=== PATIENT | male | born 1950 | race Caucasian/White ===

== ENCOUNTER 2024-11-11 20:00 | Inpatient (IN) | payer MEDICARE ==
[2024-11-11 21:10] VITALS: BMI 27.0
[2024-11-11] MEDS ORDERED: Senokot S 8.6-50 MG TAB PO PRN (21:46)
[2024-11-11 22:20] LABS: #Basophils 0.03 10x3/uL (0.0-0.2); #Eosinophils Less than 0.03 10x3/uL (0.0-0.7); #Monocytes 1.58 10x3/uL (0.11-0.59); #Neutrophils 9.14 10x3/uL (1.40-6.50); %Basophils 0.2 % (0.0-1.0); %Eosinophils 0.1 % (0.0-10.0); %Lymphocytes 12.7 % (21.0-51.0); %Monocytes 12.7 % (0.0-10.0); %Neutrophils 73.7 % (42.0-75.0); Hematocrit 38.8 % (42.0-52.0); Hemoglobin 12.8 g/dL (14.0-18.0); Mean Corpuscular Hemoglobin 29.0 pg (27.0-31.0); Mean Corpuscular Volume 88.0 fL (78.0-98.0); Platelet Count 158 10x3/uL (130-400); Red Blood Cell (RBC) Count 4.41 mill/uL (4.70-6.10); White Blood Cell (WBC) Count 12.40 10x3/uL (4.8-10.8)
[2024-11-11 22:38] LABS: ALT (SGPT) 33 U/L (Less than 45); AST (SGOT) 27 U/L (11-34); Albumin 3.0 g/dL (3.1-4.5); Alkaline Phosphatase 126 U/L (40-110); Anion Gap 9 mmol/L (10-20); BUN (Urea Nitrogen) 33 mg/dL (8.4-25.7); Bilirubin, Total 0.7 mg/dL (0.3-1.2); Calc. Creatinine Clearance 44 mL/min (70-130); Calcium 8.4 mg/dL (7.8-10.44); Carbon Dioxide 24 mmol/L (23-31); Chloride 103 mmol/L (98-107); Globulin 4.0 g/dL (2.4-3.5); Glucose 109 mg/dL (83-110); Potassium 3.4 mmol/L (3.5-5.1); Sodium 133 mmol/L (136-145)
[2024-11-12] MEDS: Acetaminophen 325 MG TAB PO SCH (01:25)
[2024-11-12 03:09] LABS: Urea Nitrogen, Random Urine 773.0 mg/dl
[2024-11-12] MEDS: Clindamycin 150 MG CAP PO SCH (05:24)
[2024-11-12 05:39] LABS: #Basophils 0.03 10x3/uL (0.0-0.2); #Eosinophils 0.03 10x3/uL (0.0-0.7); #Monocytes 1.49 10x3/uL (0.11-0.59); #Neutrophils 8.05 10x3/uL (1.40-6.50); %Basophils 0.3 % (0.0-1.0); %Eosinophils 0.3 % (0.0-10.0); %Lymphocytes 15.6 % (21.0-51.0); %Monocytes 13.0 % (0.0-10.0); %Neutrophils 70.3 % (42.0-75.0); Hematocrit 32.0 % (42.0-52.0); Hemoglobin 10.5 g/dL (14.0-18.0); Mean Corpuscular Hemoglobin 29.0 pg (27.0-31.0); Mean Corpuscular Volume 88.4 fL (78.0-98.0); Platelet Count 137 10x3/uL (130-400); Red Blood Cell (RBC) Count 3.62 mill/uL (4.70-6.10); White Blood Cell (WBC) Count 11.44 10x3/uL (4.8-10.8)
[2024-11-12 05:50] LABS: ALT (SGPT) 28 U/L (Less than 45); AST (SGOT) 25 U/L (11-34); Albumin 2.4 g/dL (3.1-4.5); Alkaline Phosphatase 100 U/L (40-110); Anion Gap 12 mmol/L (10-20); BUN (Urea Nitrogen) 30 mg/dL (8.4-25.7); Bilirubin, Total 0.7 mg/dL (0.3-1.2); Calc. Creatinine Clearance 50 mL/min (70-130); Calcium 8.0 mg/dL (7.8-10.44); Carbon Dioxide 22 mmol/L (23-31); Chloride 101 mmol/L (98-107); Globulin 3.5 g/dL (2.4-3.5); Glucose 105 mg/dL (83-110); Potassium 3.4 mmol/L (3.5-5.1); Sodium 132 mmol/L (136-145)
[2024-11-12] MEDS: Apixaban 5 MG TAB PO SCH (08:52)
[2024-11-12] MEDS: Carvedilol 6.25 MG TAB PO SCH (08:54)
[2024-11-12] MEDS: Amiodarone 200 MG TAB PO SCH (08:54)
[2024-11-12] MEDS: cefTRIAXone\\ROCEPHIN 2 GM in Sodium Chloride 0.9% 100 ML IVPB SCH (15:40)
[2024-11-13 05:47] LABS: #Basophils 0.05 10x3/uL (0.0-0.2); #Eosinophils 0.18 10x3/uL (0.0-0.7); #Monocytes 1.32 10x3/uL (0.11-0.59); #Neutrophils 7.59 10x3/uL (1.40-6.50); %Basophils 0.5 % (0.0-1.0); %Eosinophils 1.6 % (0.0-10.0); %Lymphocytes 17.1 % (21.0-51.0); %Monocytes 11.9 % (0.0-10.0); %Neutrophils 68.5 % (42.0-75.0); Hematocrit 31.8 % (42.0-52.0); Hemoglobin 10.3 g/dL (14.0-18.0); Mean Corpuscular Hemoglobin 29.0 pg (27.0-31.0); Mean Corpuscular Volume 89.6 fL (78.0-98.0); Platelet Count 124 10x3/uL (130-400); Red Blood Cell (RBC) Count 3.55 mill/uL (4.70-6.10); White Blood Cell (WBC) Count 11.08 10x3/uL (4.8-10.8)
[2024-11-13 06:25] LABS: ALT (SGPT) 26 U/L (Less than 45); AST (SGOT) 25 U/L (11-34); Albumin 2.4 g/dL (3.1-4.5); Alkaline Phosphatase 110 U/L (40-110); Anion Gap 13 mmol/L (10-20); BUN (Urea Nitrogen) 36 mg/dL (8.4-25.7); Bilirubin, Total 0.5 mg/dL (0.3-1.2); Calc. Creatinine Clearance 41 mL/min (70-130); Calcium 8.1 mg/dL (7.8-10.44); Carbon Dioxide 25 mmol/L (23-31); Chloride 97 mmol/L (98-107); Globulin 3.4 g/dL (2.4-3.5); Glucose 101 mg/dL (83-110); Potassium 3.5 mmol/L (3.5-5.1); Sodium 131 mmol/L (136-145)
[2024-11-13 09:11] LABS: Magnesium 2.2 mg/dL (1.6-2.6)
[2024-11-13] MEDS: predniSONE 20 MG TAB PO SCH (15:02)
[2024-11-14 06:32] LABS: #Basophils Less than 0.03 10x3/uL (0.0-0.2); #Eosinophils Less than 0.03 10x3/uL (0.0-0.7); #Monocytes 0.54 10x3/uL (0.11-0.59); #Neutrophils 8.83 10x3/uL (1.40-6.50); %Basophils 0.1 % (0.0-1.0); %Eosinophils 0.0 % (0.0-10.0); %Lymphocytes 12.7 % (21.0-51.0); %Monocytes 5.0 % (0.0-10.0); %Neutrophils 81.7 % (42.0-75.0); Hematocrit 33.1 % (42.0-52.0); Hemoglobin 10.8 g/dL (14.0-18.0); Mean Corpuscular Hemoglobin 28.7 pg (27.0-31.0); Mean Corpuscular Volume 88.0 fL (78.0-98.0); Platelet Count 166 10x3/uL (130-400); Red Blood Cell (RBC) Count 3.76 mill/uL (4.70-6.10); White Blood Cell (WBC) Count 10.80 10x3/uL (4.8-10.8)
[2024-11-14 06:49] LABS: ALT (SGPT) 27 U/L (Less than 45); AST (SGOT) 25 U/L (11-34); Albumin 2.3 g/dL (3.1-4.5); Alkaline Phosphatase 131 U/L (40-110); Anion Gap 12 mmol/L (10-20); BUN (Urea Nitrogen) 26 mg/dL (8.4-25.7); Bilirubin, Total 0.5 mg/dL (0.3-1.2); Calc. Creatinine Clearance 63 mL/min (70-130); Calcium 8.4 mg/dL (7.8-10.44); Carbon Dioxide 25 mmol/L (23-31); Chloride 104 mmol/L (98-107); Globulin 3.7 g/dL (2.4-3.5); Glucose 131 mg/dL (83-110); Potassium 3.9 mmol/L (3.5-5.1); Sodium 137 mmol/L (136-145)
[2024-11-14] MEDS: predniSONE 20 MG TAB PO SCH (10:10)
[2024-11-14] MEDS: Colchicine 0.6 MG TAB PO SCH (11:53)
[2024-11-14] MEDS: cefTRIAXone\\ROCEPHIN 2 GM in Sodium Chloride 0.9% 100 ML IVPB SCH (14:17)
[2024-11-14] MEDS: VANCOMYCIN 2 GRAM/400 ML Premix BAG IVPB SCH (14:19)
[2024-11-15 06:00] LABS: #Basophils Less than 0.03 10x3/uL (0.0-0.2); #Eosinophils 0.08 10x3/uL (0.0-0.7); #Monocytes 0.97 10x3/uL (0.11-0.59); #Neutrophils 8.92 10x3/uL (1.40-6.50); %Basophils 0.1 % (0.0-1.0); %Eosinophils 0.7 % (0.0-10.0); %Lymphocytes 17.6 % (21.0-51.0); %Monocytes 7.9 % (0.0-10.0); %Neutrophils 72.5 % (42.0-75.0); Hematocrit 33.3 % (42.0-52.0); Hemoglobin 10.7 g/dL (14.0-18.0); Mean Corpuscular Hemoglobin 28.4 pg (27.0-31.0); Mean Corpuscular Volume 88.3 fL (78.0-98.0); Platelet Count 210 10x3/uL (130-400); Red Blood Cell (RBC) Count 3.77 mill/uL (4.70-6.10); White Blood Cell (WBC) Count 12.30 10x3/uL (4.8-10.8)
[2024-11-15 06:29] LABS: Vancomycin, Random 15.6 ug/mL (See Comment)
[2024-11-15 06:32] LABS: ALT (SGPT) 40 U/L (Less than 45); AST (SGOT) 39 U/L (11-34); Albumin 2.2 g/dL (3.1-4.5); Alkaline Phosphatase 145 U/L (40-110); Anion Gap 12 mmol/L (10-20); BUN (Urea Nitrogen) 22 mg/dL (8.4-25.7); Bilirubin, Total 0.3 mg/dL (0.3-1.2); Calc. Creatinine Clearance 68 mL/min (70-130); Calcium 8.0 mg/dL (7.8-10.44); Carbon Dioxide 28 mmol/L (23-31); Chloride 107 mmol/L (98-107); Globulin 3.1 g/dL (2.4-3.5); Glucose 103 mg/dL (83-110); Potassium 3.5 mmol/L (3.5-5.1); Sodium 143 mmol/L (136-145)
[2024-11-15] MEDS: Colchicine 0.6 MG TAB PO SCH (10:53)
[2024-11-15] MEDS: Vancomycin 1.25 GM / NS 250 ML VIAL-2-BAG IVPB SCH (14:52)
[2024-11-15] MEDS ORDERED: hydrALAZINE 20 MG/ML VIAL SLOW IVP PRN (17:40)
[2024-11-15] MEDS ORDERED: Colchicine 0.6 MG TAB PO SCH (21:00)
[2024-11-16 05:53] LABS: #Basophils 0.04 10x3/uL (0.0-0.2); #Eosinophils 0.08 10x3/uL (0.0-0.7); #Monocytes 0.93 10x3/uL (0.11-0.59); #Neutrophils 7.65 10x3/uL (1.40-6.50); %Basophils 0.4 % (0.0-1.0); %Eosinophils 0.7 % (0.0-10.0); %Lymphocytes 21.6 % (21.0-51.0); %Monocytes 8.1 % (0.0-10.0); %Neutrophils 67.0 % (42.0-75.0); Hematocrit 34.8 % (42.0-52.0); Hemoglobin 11.2 g/dL (14.0-18.0); Mean Corpuscular Hemoglobin 28.5 pg (27.0-31.0); Mean Corpuscular Volume 88.5 fL (78.0-98.0); Platelet Count 234 10x3/uL (130-400); Red Blood Cell (RBC) Count 3.93 mill/uL (4.70-6.10); White Blood Cell (WBC) Count 11.42 10x3/uL (4.8-10.8)
[2024-11-16 06:06] LABS: ALT (SGPT) 69 U/L (Less than 45); AST (SGOT) 70 U/L (11-34); Albumin 2.3 g/dL (3.1-4.5); Alkaline Phosphatase 139 U/L (40-110); Anion Gap 12 mmol/L (10-20); BUN (Urea Nitrogen) 17 mg/dL (8.4-25.7); Bilirubin, Total 0.3 mg/dL (0.3-1.2); Calc. Creatinine Clearance 72 mL/min (70-130); Calcium 8.4 mg/dL (7.8-10.44); Carbon Dioxide 27 mmol/L (23-31); Chloride 104 mmol/L (98-107); Globulin 3.7 g/dL (2.4-3.5); Glucose 114 mg/dL (83-110); Potassium 3.0 mmol/L (3.5-5.1); Sodium 140 mmol/L (136-145)
[2024-11-16] MEDS ORDERED: Losartan 25 MG TAB PO SCH (09:00)
[2024-11-16] MEDS: Colchicine 0.6 MG TAB PO SCH (09:54)
[2024-11-17 05:28] LABS: #Basophils 0.04 10x3/uL (0.0-0.2); #Eosinophils 0.09 10x3/uL (0.0-0.7); #Monocytes 1.07 10x3/uL (0.11-0.59); #Neutrophils 7.83 10x3/uL (1.40-6.50); %Basophils 0.3 % (0.0-1.0); %Eosinophils 0.7 % (0.0-10.0); %Lymphocytes 24.6 % (21.0-51.0); %Monocytes 8.5 % (0.0-10.0); %Neutrophils 62.2 % (42.0-75.0); Hematocrit 37.6 % (42.0-52.0); Hemoglobin 12.3 g/dL (14.0-18.0); Mean Corpuscular Hemoglobin 28.6 pg (27.0-31.0); Mean Corpuscular Volume 87.4 fL (78.0-98.0); Platelet Count 266 10x3/uL (130-400); Red Blood Cell (RBC) Count 4.30 mill/uL (4.70-6.10); White Blood Cell (WBC) Count 12.60 10x3/uL (4.8-10.8)
[2024-11-17 05:55] LABS: ALT (SGPT) 70 U/L (Less than 45); AST (SGOT) 49 U/L (11-34); Albumin 2.5 g/dL (3.1-4.5); Alkaline Phosphatase 129 U/L (40-110); Anion Gap 10 mmol/L (10-20); BUN (Urea Nitrogen) 19 mg/dL (8.4-25.7); Bilirubin, Total 0.4 mg/dL (0.3-1.2); Calc. Creatinine Clearance 74 mL/min (70-130); Calcium 8.7 mg/dL (7.8-10.44); Carbon Dioxide 28 mmol/L (23-31); Chloride 103 mmol/L (98-107); Globulin 3.9 g/dL (2.4-3.5); Glucose 85 mg/dL (83-110); Potassium 3.5 mmol/L (3.5-5.1); Sodium 137 mmol/L (136-145)
[2024-11-17] MEDS: Losartan 25 MG TAB PO SCH (08:06)
[2024-11-17] MEDS: Colchicine 0.6 MG TAB PO SCH (08:06)
[2024-11-17 12:03] LABS: ANA Symphony (Qualitative) Negative (Negative); ANA Symphony (Quantitative) 0.3 Ratio (< 0.7 Negative); dsDNA IgG Antibody 1.6 IU/mL (<10 Negative)
[2024-11-17 16:50] VITALS: BMI 27.0
[2024-11-18 05:32] LABS: #Basophils 0.04 10x3/uL (0.0-0.2); #Eosinophils 0.10 10x3/uL (0.0-0.7); #Monocytes 1.22 10x3/uL (0.11-0.59); #Neutrophils 8.98 10x3/uL (1.40-6.50); %Basophils 0.3 % (0.0-1.0); %Eosinophils 0.7 % (0.0-10.0); %Lymphocytes 22.8 % (21.0-51.0); %Monocytes 8.6 % (0.0-10.0); %Neutrophils 63.4 % (42.0-75.0); Hematocrit 35.1 % (42.0-52.0); Hemoglobin 11.4 g/dL (14.0-18.0); Mean Corpuscular Hemoglobin 28.9 pg (27.0-31.0); Mean Corpuscular Volume 89.1 fL (78.0-98.0); Platelet Count 256 10x3/uL (130-400); Red Blood Cell (RBC) Count 3.94 mill/uL (4.70-6.10); White Blood Cell (WBC) Count 14.16 10x3/uL (4.8-10.8)
[2024-11-18 05:57] LABS: Vancomycin, Random 14.3 ug/mL (See Comment)
[2024-11-18 06:00] LABS: ALT (SGPT) 56 U/L (Less than 45); AST (SGOT) 29 U/L (11-34); Albumin 2.3 g/dL (3.1-4.5); Alkaline Phosphatase 151 U/L (40-110); Anion Gap 10 mmol/L (10-20); BUN (Urea Nitrogen) 26 mg/dL (8.4-25.7); Bilirubin, Total 0.3 mg/dL (0.3-1.2); Calc. Creatinine Clearance 68 mL/min (70-130); Calcium 7.7 mg/dL (7.8-10.44); Carbon Dioxide 27 mmol/L (23-31); Chloride 107 mmol/L (98-107); Globulin 2.9 g/dL (2.4-3.5); Glucose 92 mg/dL (83-110); Potassium 3.6 mmol/L (3.5-5.1); Sodium 140 mmol/L (136-145)
[2024-11-19 05:24] LABS: Hematocrit 36.1 % (42.0-52.0); Hemoglobin 11.7 g/dL (14.0-18.0); Mean Corpuscular Hemoglobin 29.3 pg (27.0-31.0); Mean Corpuscular Volume 90.5 fL (78.0-98.0); Platelet Count 301 10x3/uL (130-400); Red Blood Cell (RBC) Count 3.99 mill/uL (4.70-6.10); White Blood Cell (WBC) Count 14.29 10x3/uL (4.8-10.8)
[2024-11-19 05:51] LABS: Platelet Adequacy Comment Platelets Normal; RBC Morphology Within Normal Limits; Smudge Cells 3.0 %
[2024-11-19 06:25] LABS: ALT (SGPT) 50 U/L (Less than 45); AST (SGOT) 38 U/L (11-34); Albumin 2.5 g/dL (3.1-4.5); Alkaline Phosphatase 154 U/L (40-110); Anion Gap 13 mmol/L (10-20); BUN (Urea Nitrogen) 23 mg/dL (8.4-25.7); Bilirubin, Total 0.3 mg/dL (0.3-1.2); Calc. Creatinine Clearance 68 mL/min (70-130); Calcium 8.2 mg/dL (7.8-10.44); Carbon Dioxide 26 mmol/L (23-31); Chloride 104 mmol/L (98-107); Globulin 3.6 g/dL (2.4-3.5); Glucose 87 mg/dL (83-110); Potassium 3.6 mmol/L (3.5-5.1); Sodium 139 mmol/L (136-145)
[2024-11-19] MEDS: Losartan 25 MG TAB PO SCH (09:44)
[2024-11-20 05:24] LABS: ALT (SGPT) 52 U/L (Less than 45); AST (SGOT) 28 U/L (11-34); Albumin 3.0 g/dL (3.1-4.5); Alkaline Phosphatase 154 U/L (40-110); Anion Gap 11 mmol/L (10-20); BUN (Urea Nitrogen) 20 mg/dL (8.4-25.7); Bilirubin, Total 0.5 mg/dL (0.3-1.2); Calc. Creatinine Clearance 64 mL/min (70-130); Calcium 8.8 mg/dL (7.8-10.44); Carbon Dioxide 28 mmol/L (23-31); Chloride 102 mmol/L (98-107); Globulin 4.0 g/dL (2.4-3.5); Glucose 84 mg/dL (83-110); Hematocrit 42.1 % (42.0-52.0); Hemoglobin 13.2 g/dL (14.0-18.0); Mean Corpuscular Hemoglobin 28.4 pg (27.0-31.0); Mean Corpuscular Volume 90.7 fL (78.0-98.0); Platelet Count 344 10x3/uL (130-400); Potassium 4.0 mmol/L (3.5-5.1); Red Blood Cell (RBC) Count 4.64 mill/uL (4.70-6.10); Sodium 137 mmol/L (136-145); White Blood Cell (WBC) Count 12.45 10x3/uL (4.8-10.8)
[2024-11-20 05:56] LABS: Platelet Adequacy Comment Platelets Normal; RBC Morphology Within Normal Limits; Smudge Cells 12.0 %
[2024-11-20 12:00] VITALS: BP 168/88; TEMP 97.3
== END 2024-11-20 12:42 | disposition home or self-care (01) | DRG 602 ==
LOC: SURG B 20:06
PROVIDERS: ADMIT Family Medicine; ATTEND Family Medicine
DX: L03.116 Cellulitis of left lower limb (principal); J96.01 Acute respiratory failure with hypoxia; C79.51 Secondary malignant neoplasm of bone; M46.26 Osteomyelitis of vertebra, lumbar region; G95.89 Other specified diseases of spinal cord; N17.9 Acute kidney failure, unspecified; M46.46 Discitis, unspecified, lumbar region; M16.11 Unilateral primary osteoarthritis, right hip; M60.89 Other myositis, multiple sites; E03.9 Hypothyroidism, unspecified; N40.0 Benign prostatic hyperplasia without lower urinary tract symptoms; J42 Unspecified chronic bronchitis; I48.91 Unspecified atrial fibrillation; I12.9 Hypertensive chronic kidney disease with stage 1 through stage 4 chronic kidney disease, or unspecified chronic kidney disease; E86.0 Dehydration; K59.00 Constipation, unspecified; M10.9 Gout, unspecified; N18.9 Chronic kidney disease, unspecified; R82.71 Bacteriuria; Z79.899 Other long term (current) drug therapy; Z79.01 Long term (current) use of anticoagulants; Z79.890 Hormone replacement therapy; Z98.890 Other specified postprocedural states; Z87.440 Personal history of urinary (tract) infections
CPT/HCPCS: 36415; 36416; 71045; 72158; 74176; 76770; 80053; 80202; 81001; 82570; 83735; 83880; 84145; 84443; 84540; 84550; 85025; 86038; 86141; 86225; 87040; 87081; 93923; 94640; 96374; 96375; J0696; J2270; J2405; J3373; J3375; J7050; J7120; J7512; J7620